=== PATIENT | male | born 1965 | race Caucasian/White ===

== ENCOUNTER 2017-10-03 13:09 | Emergency (ER) | payer SELFPAY ==
[~2017-10-03 13:09] MED LIST: CLON.5 PO; QUET200 PO; TRAZ50 PO
== END 2017-10-03 14:13 | disposition left against medical advice (07) ==
LOC: ER 13:09
DX: Z53.21 Procedure and treatment not carried out due to patient leaving prior to being seen by health care provider (principal)

== ENCOUNTER 2017-10-27 05:17 | Observation (INO) | payer MEDICARE ==
[~2017-10-27] VITALS: Ht 177.8 cm; Wt 81.7 kg
[2017-10-27] MEDS ORDERED: OLAN5 PO (05:36)
[2017-10-27 06:53] LABS: BASOPHILS ABSOLUTE AUTO 0.06 K/mm3 (0.00-0.23); BASOPHILS PERCENT AUTO 1 % (0-2); EOSINOPHILS ABSOLUTE AUTO 0.26 K/mm3 (0.00-0.68); EOSINOPHILS PERCENT AUTO 2 % (0-6); Hematocrit 46.5 % (37.0-53.0); Hemoglobin 16.1 g/dL (13.5-17.5); IMMATURE GRAN ABSOLUTE AUTO 0.03 K/mm3 (0.00-0.10); IMMATURE GRAN PERCENT AUTO 0 % (0-1); LYMPHOCYTES ABSOLUTE AUTO 3.02 K/mm3 (0.84-5.20); LYMPHOCYTES PERCENT AUTO 28 % (21-46); MONOCYTES ABSOLUTE AUTO 0.94 K/mm3 (0.16-1.47); MONOCYTES PERCENT AUTO 9 % (4-13); Mean Corpuscular HGB 32.3 pg (26.0-34.0); Mean Corpuscular HGB Conc 34.6 g/dL (31.5-36.5); Mean Corpuscular Volume 93 fL (80-100); Mean Platelet Volume 9.4 fL (9.1-12.4); NEUTROPHILS PERCENT AUTO 60 % (41-73); Platelet Count 247 K/mm3 (150-400); RDW Coefficient Variation 12.5 % (11.7-14.2); RDW Standard Deviation 43.1 fL (35.1-46.3); Red Blood Cell Count 4.98 M/mm3 (4.30-5.90); White Blood Cell Count 10.81 K/mm3 (4.00-11.30)
[2017-10-27 07:14] LABS: Alanine Aminotransfer (ALT/SGP 28 U/L (12-78); Albumin, Blood 4.1 g/dL (3.4-5.0); Alk Phos 119 U/L (50-136); Anion Gap 7 mmol/L (6-16); Aspartate Aminotrans (AST/SGOT 18 U/L (12-37); Bilirubin, Total 0.6 mg/dL (0.1-1.0); Blood Urea Nitrogen 15 mg/dL (8-24); Bun/Creatinine Ratio 18.4 (12.0-20.0); CO2, Blood 26 mmol/L (21-32); Chloride, Blood 106 mmol/L (98-108); Creatinine, Blood 0.82 mg/dL (0.60-1.20); Ethanol (Alcohol), Blood, Med <3 mg/dL; Glomerular Filtration Rate >60 (60-); Glucose, Blood 88 mg/dL (70-99); Potassium, Blood 4.4 mmol/L (3.5-5.5); Sodium, Blood 139 mmol/L (136-145); Thyroxine (T4) 12.1 ug/dL (4.5-12.1); Total Protein, Blood 8.1 g/dL (6.4-8.2)
[2017-10-27 07:17] LABS: Thyroid Stimulating Hormone 0.076 uIU/mL (0.360-4.800)
[2017-10-27 07:19] LABS: Acetaminophen, Random <2.0 ug/mL (10.0-30.0)
== END 2017-10-27 09:16 | disposition home or self-care (01) ==
LOC: ER 05:17 → EOR 05:18
PROVIDERS: Emergency Medicine
DX: F43.10 Post-traumatic stress disorder, unspecified (principal); F17.210 Nicotine dependence, cigarettes, uncomplicated; Z79.899 Other long term (current) drug therapy
CPT/HCPCS: 36415; 70250; 80053; 84436; 84443; 85025; 99285; G0378; G0480

== ENCOUNTER 2019-01-03 12:00 | Emergency (ER) | payer MEDICARE ==
[~2019-01-03] VITALS: Ht 180.3 cm; Wt 81.7 kg
[~2019-01-03 12:00] MED LIST changes: +OLAN5 PO
[2019-01-03] MEDS ORDERED: TRAZ150T57 PO (14:28)
[2019-01-03] MEDS ORDERED: Seroquel50 MG PO (14:28)
[2019-01-03] MEDS ORDERED: OLAN10A MM (14:28)
== END 2019-01-03 14:47 | disposition home or self-care (01) ==
LOC: ER 12:00
DX: F43.10 Post-traumatic stress disorder, unspecified (principal)
CPT/HCPCS: 99284

== ENCOUNTER 2019-05-05 14:26 | Observation (INO) | payer MEDICARE ==
[~2019-05-05] VITALS: Ht 177.8 cm; Wt 72.4 kg
[~2019-05-05 14:26] MED LIST changes: +OLAN10A MM; +Seroquel50 MG PO; +TRAZ150T57 PO
[2019-05-05] MEDS ORDERED: NAPR500 PO (14:39)
[2019-05-05 14:59] LABS: BASOPHILS ABSOLUTE AUTO 0.02 K/mm3 (0.00-0.23); BASOPHILS PERCENT AUTO 0 % (0-2); EOSINOPHILS ABSOLUTE AUTO 0.13 K/mm3 (0.00-0.68); EOSINOPHILS PERCENT AUTO 2 % (0-6); Hematocrit 35.5 % (37.0-53.0); IMMATURE GRAN ABSOLUTE AUTO 0.01 K/mm3 (0.00-0.10); IMMATURE GRAN PERCENT AUTO 0 % (0-1); LYMPHOCYTES ABSOLUTE AUTO 2.47 K/mm3 (0.84-5.20); LYMPHOCYTES PERCENT AUTO 29 % (21-46); MONOCYTES ABSOLUTE AUTO 0.96 K/mm3 (0.16-1.47); MONOCYTES PERCENT AUTO 11 % (4-13); Mean Corpuscular HGB 29.9 pg (26.0-34.0); Mean Corpuscular HGB Conc 33.8 g/dL (31.5-36.5); Mean Corpuscular Volume 88 fL (80-100); Mean Platelet Volume 11.1 fL (9.1-12.4); NEUTROPHILS ABSOLUTE AUTO 4.95 K/mm3 (1.96-9.15); NEUTROPHILS PERCENT AUTO 58 % (41-73); Platelet Count 158 K/mm3 (150-400); RDW Coefficient Variation 12.5 % (11.7-14.2); RDW Standard Deviation 40.2 fL (35.1-46.3); Red Blood Cell Count 4.02 M/mm3 (4.30-5.90); White Blood Cell Count 8.54 K/mm3 (4.00-11.30)
[2019-05-05 15:26] LABS: Alanine Aminotransfer (ALT/SGP 37 U/L (12-78); Albumin, Blood 2.6 g/dL (3.4-5.0); Albumin/Globulin Ratio 0.8 (0.8-1.8); Alk Phos 158 U/L (50-136); Anion Gap 7 mmol/L (6-16); Aspartate Aminotrans (AST/SGOT 19 U/L (12-37); Bilirubin, Total 0.5 mg/dL (0.1-1.0); Blood Urea Nitrogen 15 mg/dL (8-24); Bun/Creatinine Ratio 29.6 (12.0-20.0); CO2, Blood 26 mmol/L (21-32); Calcium, Blood 8.5 mg/dL (8.5-10.1); Chloride, Blood 110 mmol/L (98-108); Creatinine, Blood 0.51 mg/dL (0.60-1.20); Globulin, Blood 3.1 g/dL (2.2-4.0); Glomerular Filtration Rate >60 (60-); Glucose, Blood 123 mg/dL (70-99); Potassium, Blood 4.1 mmol/L (3.5-5.5); Sodium, Blood 143 mmol/L (136-145); Total Protein, Blood 5.7 g/dL (6.4-8.2); Troponin I <0.015 ng/mL (0.000-0.040)
[2019-05-05] MEDS ORDERED: TRAZ150T57 PO (15:28)
[2019-05-05] MEDS ORDERED: QUETIAPINE FUM150 MG PO (15:28)
[2019-05-05 17:15] LABS: International Normalized Ratio 1.08; Prothrombin Time Results 11.4 Sec (9.7-11.5)
--- NOTE | 2019-05-05 18:31 | NUR ---
Attempted to call ED RN for report; He has just received an ambulance and will call later.
[2019-05-05 18:35] LABS: Free Thyroxine 7.24 ng/dL (0.70-1.60); Magnesium, Blood 1.7 mg/dL (1.6-2.4); T3 Uptake 54 % (33-40); Troponin I 0.023 ng/mL (0.000-0.040)
[2019-05-05 18:36] LABS: Thyroid Stimulating Hormone <0.005 uIU/mL (0.360-4.800)
[2019-05-05 18:40] LABS: Free Thyroxine Index Unable to Calculate % (1.4-3.8); Thyroxine (T4) >24.0 ug/dL (4.5-12.1)
--- NOTE | 2019-05-05 18:47 | NUR ---
Telephone report received from [facility] ED RN at this time. Anticipate arrival of pt to [facility]U 13 shortly.
[2019-05-06 02:06] LABS: Hematocrit 34.4 % (37.0-53.0); Hemoglobin 11.6 g/dL (13.5-17.5); Mean Corpuscular HGB 29.7 pg (26.0-34.0); Mean Corpuscular HGB Conc 33.7 g/dL (31.5-36.5); Mean Corpuscular Volume 88 fL (80-100); Mean Platelet Volume 10.7 fL (9.1-12.4); Platelet Count 136 K/mm3 (150-400); RDW Coefficient Variation 12.5 % (11.7-14.2); White Blood Cell Count 9.09 K/mm3 (4.00-11.30)
[2019-05-06 02:25] LABS: Anion Gap 8 mmol/L (6-16); Blood Urea Nitrogen 18 mg/dL (8-24); Bun/Creatinine Ratio 35.5 (12.0-20.0); CO2, Blood 26 mmol/L (21-32); Chloride, Blood 109 mmol/L (98-108); Creatinine, Blood 0.51 mg/dL (0.60-1.20); Glomerular Filtration Rate >60 (60-); Glucose, Blood 100 mg/dL (70-99); Magnesium, Blood 1.8 mg/dL (1.6-2.4); Potassium, Blood 4.2 mmol/L (3.5-5.5); Sodium, Blood 143 mmol/L (136-145)
--- NOTE | 2019-05-06 05:22 | NUR ---
SHIFT SUMMARY PT SLEEPING COMFORTABLY IN ROOM AT THIS TIME. PT ARRIVED TO UNIT ON CARDIZEM GTT AT 10MG/HR. PT CONVERTED TO NSR AT APPROX 2000 W/ A HR AVG 90'S. CARDIZEM WAS THEN REDUCED TO 5MG/HR. AT APPROX 0400 HR REMAINED NRS W/ RATE AVG OF 80'S, CARDIZEM WAS TURNED OFF AT THIS TIME. PT SLEEPING SOUNDLY. PT DENIED ANY CP OR SOB. PT WAS ABLE TO USE URINAL AT BEDSIDE W/O ASSIST. DENIES NEEDS. RESP EVEN UNLBAORED ON RA W/ SATS >92%. CALL LIGHT IN REACH.
--- NOTE | 2019-05-06 10:34 | NUR ---
ECHOCARDIOGRAM COMPLETED
--- NOTE | 2019-05-06 14:20 | NUR ---
Patient is lying in bed and alert. Patient explains about his medical issues and states that he would like prayer because he feels he needs help from above. So I gladly provide prayer and patient thanks me for it and patient thanks me for coming. I will continue to remain available to patient and family.
--- NOTE | 2019-05-06 17:57 | NUR ---
SHIFT SUMMARY PT A&Ox4, ANXIOUS BUT COOPERATIVE WITH CARE. PT RESTING IN BED DURING SHIFT. UP TO BATHROOM IND. PT REPORTS DISCOMFORT IN LLE, DENIES NEEDS FOR INTERVENTION T/O SHIFT. PT DENIES SOB AND NAUSEA. PER TELE SR/ST 90-100'S, 10 BEAT RUN OF [facility], DR HOYOS NOTIFIED. ELEVATED TROP, TRENDING UP, NOTIFIED DR HOYOS. PT RECEIVING PO INDERAL, TRANSITIONING TO EXTENDED RELEASE. VSS. NO OTHER ACUTE CHANGES NOTED DURING SHIFT. WILL CONTINUE TO MONITOR.
[2019-05-07 04:02] LABS: BASOPHILS ABSOLUTE AUTO 0.02 K/mm3 (0.00-0.23); BASOPHILS PERCENT AUTO 0 % (0-2); EOSINOPHILS ABSOLUTE AUTO 0.26 K/mm3 (0.00-0.68); EOSINOPHILS PERCENT AUTO 3 % (0-6); Hematocrit 35.5 % (37.0-53.0); Hemoglobin 12.1 g/dL (13.5-17.5); IMMATURE GRAN ABSOLUTE AUTO 0.01 K/mm3 (0.00-0.10); IMMATURE GRAN PERCENT AUTO 0 % (0-1); LYMPHOCYTES ABSOLUTE AUTO 3.98 K/mm3 (0.84-5.20); LYMPHOCYTES PERCENT AUTO 43 % (21-46); MONOCYTES ABSOLUTE AUTO 1.14 K/mm3 (0.16-1.47); MONOCYTES PERCENT AUTO 12 % (4-13); Mean Corpuscular HGB 30.6 pg (26.0-34.0); Mean Corpuscular HGB Conc 34.1 g/dL (31.5-36.5); Mean Corpuscular Volume 90 fL (80-100); Mean Platelet Volume 11.4 fL (9.1-12.4); NEUTROPHILS ABSOLUTE AUTO 3.88 K/mm3 (1.96-9.15); NEUTROPHILS PERCENT AUTO 42 % (41-73); Platelet Count 136 K/mm3 (150-400); RDW Coefficient Variation 12.3 % (11.7-14.2); RDW Standard Deviation 40.5 fL (35.1-46.3); Red Blood Cell Count 3.96 M/mm3 (4.30-5.90); White Blood Cell Count 9.29 K/mm3 (4.00-11.30)
[2019-05-07 04:24] LABS: Alanine Aminotransfer (ALT/SGP 32 U/L (12-78); Albumin, Blood 2.7 g/dL (3.4-5.0); Albumin/Globulin Ratio 0.8 (0.8-1.8); Alk Phos 157 U/L (50-136); Anion Gap 7 mmol/L (6-16); Aspartate Aminotrans (AST/SGOT 18 U/L (12-37); Bilirubin, Total 0.7 mg/dL (0.1-1.0); Blood Urea Nitrogen 22 mg/dL (8-24); Bun/Creatinine Ratio 42.6 (12.0-20.0); CO2, Blood 26 mmol/L (21-32); Chloride, Blood 110 mmol/L (98-108); Creatinine, Blood 0.52 mg/dL (0.60-1.20); Globulin, Blood 3.3 g/dL (2.2-4.0); Glomerular Filtration Rate >60 (60-); Glucose, Blood 93 mg/dL (70-99); Potassium, Blood 4.2 mmol/L (3.5-5.5); Sodium, Blood 143 mmol/L (136-145)
--- NOTE | 2019-05-07 06:05 | NUR ---
SHIFT SUMMARY PT RESTING IN ROOM COMFORTABLY AT THIS TIME. NO ACUTE CHANGES IN STATSU T/O NIGHT. PT DID NOT SLEEP WELL. REPORTS HAD TROUBLE "RELAXING MY MIND". PT SLEPT IN SHORT PERIODS. RESP EVEN UNLABORED ON RA W/ SATS >92%. DENIED ANY CP OR SOB T/O NIGHT. PT WAS INDEPENDENT IN ROOM, AND CALL LIGHT IN REACH. PT CALLS APPRORIATELY.
[2019-05-07] MEDS ORDERED: Tapazole10 MG PO (13:48)
[2019-05-07] MEDS ORDERED: Inderal80 MG PO (13:50)
[2019-05-07] MEDS ORDERED: XARELTO1 EACH PO (13:52)
[2019-05-07] MEDS ORDERED: Inderal40 MG PO (14:13)
--- NOTE | 2019-05-07 14:52 | NUR ---
DISCHARGE SUMMARY PT A&Ox4. ANXIOUS BUT COOPERATIVE WITH CARE. PT RESTING IN BED DURING SHIFT. UP TO BATHROOM IND. PT DENIES PAIN, SOB AND N/V. PT TELE SR/ST 90-100'S, MEDICATED WITH SCHEDULED INDERAL AND x1 PRN INDERAL. OTHER VSS. NO OTHER ACUTE CHANGES NOTED DURING SHIFT. PT EDUCATED ON DISCHARGE INSTRUCTIONS, MEDICATIONS AND FOLLOW UP APPOINTMENTS. PT PROVIDED WITH [employer]. MEDICATIONS FAXED TO [facility] PER PT REQUEST. WHEN THIS RN INQUIRED ON RIDE HOME PT STATES HIS CAR IS AT [place] AND THAT HE IS GOING TO WALK OVER THERE. ASKED IF THE PATIENT COULD CALL FOR A RIDE, PT STATES HE DOSE NOTE HAVE HIS PHONE OR NUMBERS, DECLINED TO GIVE NAME TO TRY AND CALL. OFFERED TO SEE IF WE COULD SET UP A RIDE AND PATIENT DECLINED. PT LEFT ROOM AT 1444 ON FOOT. PT STABLE UPON DISCHARGE.
== END 2019-05-07 14:47 | disposition home or self-care (01) ==
LOC: ER 14:26 → PCU 14:27
PROVIDERS: Emergency Medicine; Family Medicine; Pharmacist; ADMIT Family Medicine
DX: I48.91 Unspecified atrial fibrillation (principal); E05.90 Thyrotoxicosis, unspecified without thyrotoxic crisis or storm; I82.412 Acute embolism and thrombosis of left femoral vein; I82.4Z2 Acute embolism and thrombosis of unspecified deep veins of left distal lower extremity; F41.8 Other specified anxiety disorders; F17.210 Nicotine dependence, cigarettes, uncomplicated
CPT/HCPCS: 36415; 71045; 76536; 80048; 80053; 83735; 83880; 84436; 84439; 84443; 84445; 84479; 84481; 84484; 85025; 85027; 85610; 85730; 93005; 93010; 93306; 93971; 96365; 96366; 96375; 99285-25; G0378; J1644

== ENCOUNTER → 2020-10-26 | Outpatient (CLI) | payer MEDICARE ==
[~2020-10-26] MED LIST changes: +Inderal40 MG PO; +Inderal80 MG PO; +NAPR500 PO; +QUETIAPINE FUM150 MG PO; +Tapazole10 MG PO; +XARELTO1 EACH PO
== END ==
LOC: LAB SHORT 13:13 → LAB 13:13
DX: L03.119 Cellulitis of unspecified part of limb (principal)
CPT/HCPCS: 87070; 87075; 87077; 87186; 87205

== ENCOUNTER → 2021-04-15 | Outpatient (CLI) | payer MEDICARE ==
[~2021-04-15] MED LIST changes: +CYCLOPENTOLATE RIGHTEYE; +Durezol5 ML RIGHTEYE; +EUTHYROX50 MC1 PO
[2021-04-15 20:14] LABS: Free Thyroxine 0.45 ng/dL (0.70-1.60); Thyroid Stimulating Hormone 34.8 uIU/mL (0.360-4.800); Triiodothyronine, Free 1.86 pg/mL (2.18-3.98)
== END | disposition home or self-care (01) ==
LOC: LAB SHORT 18:04 → LAB 18:04
PROVIDERS: Family Medicine
DX: E05.90 Thyrotoxicosis, unspecified without thyrotoxic crisis or storm (principal)
CPT/HCPCS: 84439; 84443; 84481

== ENCOUNTER 2021-04-19 09:22 | Emergency (ER) | payer MEDICARE ==
[~2021-04-19] VITALS: Ht 177.8 cm; Wt 89.8 kg
[~2021-04-19 09:22] MED LIST changes: -CYCLOPENTOLATE RIGHTEYE; -Durezol5 ML RIGHTEYE; -EUTHYROX50 MC1 PO
[2021-04-19] MEDS ORDERED: EUTHYROX50 MC1 PO (14:45)
[2021-04-19] MEDS ORDERED: Durezol5 ML RIGHTEYE (15:06)
[2021-04-19] MEDS ORDERED: CYCLOPENTOLATE RIGHTEYE (15:06)
== END 2021-04-19 15:15 | disposition home or self-care (01) ==
LOC: ER 09:22
DX: H20.9 Unspecified iridocyclitis (principal); F17.200 Nicotine dependence, unspecified, uncomplicated
CPT/HCPCS: 99283; A9270

== ENCOUNTER → 2025-08-28 | Outpatient (CLI) | payer MEDICARE, OTHER ==
[~2025-08-28] MED LIST changes: +CYCLOPENTOLATE RIGHTEYE; +Durezol5 ML RIGHTEYE; +EUTHYROX50 MC1 PO; +PRAZ2 PO
[2025-08-29 12:39] LABS: Stool Occult Bld Immuno 1 Negative (NEGATIVE)
== END ==
LOC: LAB SHORT 15:58 → LAB 15:58
DX: Z12.11 Encounter for screening for malignant neoplasm of colon (principal)
CPT/HCPCS: G0328